=== PATIENT | male | born 1990 | race Caucasian/White ===

== ENCOUNTER → 2023-04-01 | Day surgery (SDC) | payer SELFPAY ==
[~2023-04-01] MED LIST: ACETAMINOPHEN 1000 MG/100 ML 100 ML IV ONE; CEFUROXIME500 MG PO; DEXAMETHASONE SOD PHOS 10 MG/1 ML VIAL ONE; EPINEPHRINE HCL 1:1000 1ML 1 MG/ML AMP ONE; FENTANYL CITRATE/PF 100MCG/2 ML INJ ONE; GLYCOPYRROLATE INJ 0.2 MG/ML VIAL ONE; LACTATED RINGER'S 1,000 ML ONE; LIDOCAINE 1% W/EPINEPHRINE 20 ML VIAL ONE; MIDAZOLAM HCL 2 MG/2 ML VIAL ONE; POVIDONE IODINE 0.05% 0.05 % ML PO ONE
[2023-04-01 09:18] VITALS: TEMP 98.1
[2023-04-01 10:25] VITALS: BP 129/79; PULSE 75; RESP 16; O2SAT 97
== END | disposition home or self-care (01) ==
LOC: OR 06:03
PROVIDERS: ATTEND Otolaryngology Otolaryngology/Facial Plastic Surgery
DX: J32.0 Chronic maxillary sinusitis (principal); J34.2 Deviated nasal septum; J34.89 Other specified disorders of nose and nasal sinuses; I10 Essential (primary) hypertension; K21.9 Gastro-esophageal reflux disease without esophagitis; Z88.1 Allergy status to other antibiotic agents
CPT/HCPCS: 30520; 31267; 88304; 88311; J0131; J0171; J1100; J2250; J3010; J7121; 88300